=== PATIENT | female | born 2000 | race African-American/Black ===

== ENCOUNTER 2022-01-04 06:03 | Observation (INO) ==
[2022-01-04] MEDS ORDERED: fentaNYL 100 MCG/2 ML VIAL ONE (06:20)
[2022-01-04] MEDS ORDERED: ONDANSETRON 4 MG/2 ML VIAL ONE (06:20)
[2022-01-04] MEDS ORDERED: ONDANSETRON 4 MG/2 ML VIAL IV STA (06:21)
[2022-01-04] MEDS ORDERED: fentaNYL 100 MCG/2 ML VIAL IV STA (06:21)
[2022-01-04] MEDS ORDERED: SODIUM CHLORIDE 0.9% 1,000 ML IV STA (06:22)
[2022-01-04] MEDS ORDERED: OXYTOCIN/D5LR 20 UNIT/1,000 ML PREMIX IV ONE (06:23)
[2022-01-04] MEDS ORDERED: OXYTOCIN/LR 20 UNIT/1,000 ML BAG IV ONE (06:30)
[2022-01-04 06:36] LABS: Basophils % 0.2 % (0.0-0.8); Eosinophils # 0.1 10*3/uL (0.0-0.87); Eosinophils % 1.2 % (0.00-10.9); Hematocrit 30.8 VOL% (35.7-47.0); Hemoglobin 9.9 GM/DL (12.0-16.0); Immature Granulocytes % 0.4 %; Immature Granulocytes Absolute 0.05 #; Lymphocytes # 2.6 10*3/uL (1.4-4.0); Lymphocytes % 23.2 % (21.3-54.2); Mean Corpuscular HGB Conc 32.1 GM/DL (32-36); Mean Corpuscular Volume 81.9 FL (87-102); Mean Platelet Volume 10.5 FL (9.6-12.0); Monocytes # 0.4 10*3/uL (0.11-0.8); Monocytes % 3.8 % (1.7-12.7); Neutrophils % 71.2 % (38.7-73.9); Platelet Count 357 T/CUMM (130-400); Red Blood Count 3.76 MC/CUMM (3.8-5.5); Red Cell Distribution Width 17.1 % (9.3-17.3); White Blood Count 11.4 T/CUMM (4-12)
[2022-01-04] MEDS ORDERED: ONDANSETRON 4 MG/2 ML VIAL IV PRN (06:42)
[2022-01-04 06:46] LABS: INR 0.9; PT Patient Result 9.9 SECS (10.5-12.0); Partial Thromboplastin Time 27.1 SECS (23.8-32.1)
[2022-01-04 06:53] LABS: Alanine Aminotransferase 12 U/L (13-56); Albumin 2.8 G/DL (3.4-5.0); Alkaline Phosphatase 82 U/L (45-117); Aspartate Amino Transferase 19 U/L (0-37); Bilirubin,Total < 0.39 MG/DL (0.20-1.00); Blood Urea Nitrogen 4 MG/DL (7-18); Calcium 8.6 MG/DL (8.5-10.1); Carbon Dioxide 19 MMOL/L (21-32); Chloride 109 MMOL/L (98-107); Estimated Glom Filtration Rate 137 ML/MIN; Glucose 98 MG/DL (74-106); Osmolality,Calculated 269.8 MOS/KG (273-304); Sodium 137 MMOL/L (136-145); Total Protein 7.7 G/DL (6.4-8.2)
[2022-01-04] MEDS ORDERED: LACTATED RINGERS 1,000 ML IV SCH (07:00)
[2022-01-04] MEDS ORDERED: HYDROmorphone 1 MG/1 ML SYRINGE IV PRN (08:15)
[2022-01-04 11:46] VITALS: BP 119/68
== END 2022-01-04 15:30 | disposition home or self-care (01) ==
LOC: N.OB 06:03 → N.LD 06:03 → N.ED 06:03 → N.LD 07:38 → N.OB 08:38
PROVIDERS: ADMIT Obstetrics & Gynecology; ATTEND Obstetrics & Gynecology